=== PATIENT | female | born 1995 | race Caucasian/White ===

== ENCOUNTER 2017-05-10 19:26 | Emergency (ER) | payer OTHER ==
[2017-05-10 19:35] VITALS: BP 120/79; PULSE 97; TEMP 98.5; BMI 23.0
[2017-05-10] MEDS ORDERED: SODIUM CHLORIDE 0.9% 1000 ML INFUS.BAG IV ONE ×2 (20:10→22:10)
--- NOTE | 2017-05-10 20:28 | PDOC ---
History of Present Illness - General Chief Complaint: Lightheaded Stated Complaint: THYROID PAIN Time Seen by Provider: 05/10/17 19:50 History Source: Patient Exam Limitations: No Limitations - History of Present Illness Initial Comments: 05/10/17 20:23 The patient is a 21F with a PMH of hyperthyroidism and hypoglycemia who presents from her PCP's office for concerns of a thyroid storm. The patient states that her PCP changed her methimazole dosing 2 weeks ago. Since then she has felt drowsy, dizzy, nauseous, and felt like she was going to pass out. She states that her hands got cold, white, and purple. She's had difficulty swallowing and breathing. She has also felt more emotional recently. No sick contacts, no recent travel. She states that she feels like she has a cold. All: none Surg: none Soc: 1 cig/day, no drinking or drugs LMP: 7 days ago Past History - Past Medical History Allergies/Adverse Reactions: Allergies Allergy/AdvReac Type Severity Reaction Status Date / Time No Known Allergies Allergy Verified 05/10/17 19:33 Home Medications: Ambulatory Orders Methimazole [Tapazole -] 5 mg PO BID 05/10/17 - Psycho/Social/Smoking Cessation Hx Suicidal Ideation: No Smoking History: Never smoked Have you smoked in the past 12 months: No Information on smoking cessation initiated: No Hx Alcohol Use: No Drug/Substance Use Hx: No Review of Systems - Review of Systems Able to Perform ROS?: Yes Is the patient limited Sinhala proficient: No Constitutional: Yes: Chills, Fever HEENTM: Yes: Throat Pain, Throat Swelling. No: Ear Pain, Ear Discharge, Mouth Pain Respiratory: Yes: Shortness of Breath. No: Cough Cardiac (ROS): Yes: Chest Pain ABD/GI: Yes: Nausea, Other (abd pain - epigastric). No: Vomiting : No: Burning, Dysuria Neurological: Yes: Headache Psychiatric: Yes: Mood Swings Endocrine: Yes: Increased Thirst. No: Intolerance to Cold, Intolerance to Heat , Increased Urine *Physical Exam - Vital Signs Last Vital Signs Temp Pulse Resp BP Pulse Ox 98.5 F 97 H 18 120/79 100 05/10/17 19:28 05/10/17 19:28 05/10/17 19:28 05/10/17 19:28 05/10/17 19:28 - Physical Exam General Appearance: Yes: Nourished, Appropriately Dressed, Mild Distress. No: Apparent Distress HEENT: positive: Normal Voice, Nasal Congestion, Hearing Grossly Normal. negative: Muffled/Hoarse voice, Pharyngeal Erythema, Tonsillar Exudate, Tonsillar Erythema, Rhinorrhea Respiratory/Chest: positive: Lungs Clear, Normal Breath Sounds. negative: Chest Tender, Respiratory Distress, Accessory Muscle Use, Labored Respiration Cardiovascular: positive: Regular Rhythm, Regular Rate. negative: Tachycardia, Diastolic Murmur, Systolic Murmur Gastrointestinal/Abdominal: positive: Tender (epigastric), Flat, Soft. negative : Protuberent, Distended, Guarding, Rebound Musculoskeletal: negative: CVA Tenderness, CVA Tenderness (R), CVA Tenderness (L ) Extremity: positive: Normal Inspection, Normal Range of Motion. negative: Swelling, Calf Tenderness Integumentary: positive: Dry, Warm. negative: Cold, Clammy Neurologic: positive: Fully Oriented, Alert, Normal Mood/Affect, Motor Strength 5/5 Heart Score/ECG Review - ECG Impressions Normal ECG: Yes Comment:: 05/10/17 22:06 NSR ED Treatment Course - LABORATORY CBC & Chemistry Diagram: 05/10/17 20:16 05/10/17 20:16 - RADIOLOGY Radiology Studies Ordered: Category Date Time Status CHEST PA & LAT [RAD] Stat Radiology 05/10/17 20:06 Ordered Medical Decision Making - Medical Decision Making 05/10/17 20:31 The patient is a 21F with a PMH of hyperthyroidism and hypoglycemia who presents with cold-like symptoms. I will order labs to r/o an infectious process and electrolyte imbalance. Will reassess when labs return. 05/10/17 21:40 Patient complained of difficulty breathing. I placed her on a nebulized saline NRB. On reassessment she states she is feeling better. 05/10/17 22:20 The patient states that she's feeling better and she's ready for d/c. *DC/Admit/Observation/Transfer Diagnosis at time of Disposition: Pharyngitis Qualifiers: Pharyngitis/tonsillitis etiology: unspecified etiology Qualified Code(s): J02.9 - Acute pharyngitis, unspecified - Discharge Dispostion Disposition: HOME Condition at time of disposition: Improved Admit: No - Patient Instructions Printed Discharge Instructions: Common Cold, DI for Common Cold Additional Instructions: Please return to the ER if your symptoms persist, worsen, or if new symptoms arise. - Attestations Physician Attestion: 05/10/17 22:22 I, Dr. Raj Morgan, attest that this document has been prepared under my direction and personally reviewed by me in its entirety. I further attest, that it accurately reflects all work, treatment, procedures and medical decision -making performed by me.
[2017-05-10 20:30] LABS: BASOPHIL 0.4 % (0-2.0); EOSINOPHIL 1.1 % (0-4.5); MCH 33.4 pg (25.7-33.7); MCHC 35.1 g/dl (32.0-36.0); MEAN PLT VOLUME 7.7 fl (7.5-11.1); NEUTROPHILS 75.5 % (42.8-82.8); PLATELET COUNT 198 K/MM3 (134-434); RDW 12.5 % (11.6-15.6); WHITE BLOOD COUNT 8.7 K/mm3 (4.0-10.0)
[2017-05-10 20:45] LABS: URINE APPEARANCE CLEAR; URINE BILIRUBIN NEGATIVE (NEGATIVE); URINE BLOOD NEGATIVE (NEGATIVE); URINE COLOR LTYELLOW; URINE GLUCOSE (UA) NEGATIVE (NEGATIVE); URINE KETONE NEGATIVE (NEGATIVE); URINE LEUK ESTERASE NEGATIVE (NEGATIVE); URINE NITRITE NEGATIVE (NEGATIVE); URINE PROTEIN NEGATIVE (NEGATIVE); URINE UROBILINOGEN NEGATIVE mg/dL (0.2-1.0)
[2017-05-10 20:52] LABS: ALBUMIN 4.1 g/dl (3.4-5.0); ALK PHOS 52 U/L (45-117); ANION GAP 7 (8-16); BILIRUBIN,TOTAL 0.4 mg/dL (0.2-1.0); CALCIUM 9.1 mg/dL (8.5-10.1); CO2 27 mmol/L (21-32); CREATININE 0.9 mg/dL (0.55-1.02); GLUCOSE,RANDOM 89 mg/dL (74-106); SGOT/AST 9 U/L (15-37); SGPT/ALT 22 U/L (12-78); TOT PROT 7.8 g/dl (6.4-8.2)
[2017-05-10 21:00] LABS: FREE T4 0.92 ng/dl (0.76-1.46); THYROID STIMULATING HORMONE 1.31 uIU/ml (0.358-3.74)
--- NOTE | 2017-05-10 21:12 | PDOC ---
Attending Attestation - Resident Resident Name: Raj Morgan - ED Attending Attestation I have performed the following: I have examined & evaluated the patient, The case was reviewed & discussed with the resident, I agree w/resident's findings & plan, Exceptions are as noted - Physicial Exam PE: 05/10/17 21:11 *Physical Exam General Appearance: Yes: Appropriately Dressed. No: Apparent Distress, Intoxicated HEENT: positive: EOMI, SARAN, Normal ENT Inspection, Normal Voice, TMs Normal, Pharynx Normal. negative: Pale Conjunctivae, Photophobia, Scleral Icterus (R), Scleral Icterus (L) Neck: positive: Trachea midline, Normal Thyroid, Supple. negative: Tender, Rigid, Carotid bruit, Stridor, Lymphadenopathy (R), Lymphadenopathy (L), Thyromegaly Respiratory/Chest: positive: Lungs Clear, Normal Breath Sounds. negative: Chest Tender, Respiratory Distress, Accessory Muscle Use, Labored Respiration, RES, Crackles, Rales, Rhonchi, Stridor, Wheezing, Dullness Cardiovascular: positive: Regular Rhythm, Regular Rate, S1, S2. negative: Edema , JVD, Murmur, Bradycardia, Tachycardia Vascular Pulses: Dorsalis-Pedis (R): 2+, Doralis-Pedis (L): 2+ Gastrointestinal/Abdominal: positive: Normal Bowel Sounds, Flat, Soft. negative : Tender, Organomegaly, Pulsatile Mass, Increased Bowel Sounds, Decreased BS, Distended, Guarding, Rebound, Hernia, Hepatomegaly, Spleenomegaly Lymphatic: negative: Adenopathy, Tenderness Musculoskeletal: positive: Normal Inspection. negative: CVA Tenderness, Decreased Range of Motion Extremity: positive: Normal Capillary Refill, Normal Inspection, Normal Range of Motion, Pelvis Stable. negative: Tender, Pedal Edema, Swelling, Erythema Integumentary: positive: Normal Color, Dry, Warm. 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 negative: EOM Palsy, Facial Droop, Sensory Deficit
[2017-05-10] MEDS ORDERED: IBUPROFEN 600 MG TABLET (FP) PO ONE ×2 (22:09→22:17)
--- NOTE | 2017-05-11 10:22 | EKG ---
Test Reason : Blood Pressure : / mmHG Vent. Rate : 074 BPM Atrial Rate : 074 BPM P-R Int : 154 ms QRS Dur : 080 ms QT Int : 372 ms P-R-T Axes : 067 080 070 degrees QTc Int : 412 ms NORMAL SINUS RHYTHM NONSPECIFIC T WAVE ABNORMALITY NO PREVIOUS ECGS AVAILABLE Confirmed by MARILYN OLVERA MD ([id number]) on 05/11/2017 10:22:01 AM Referred By: Confirmed By:MARILYN OLVERA MD
== END 2017-05-10 22:40 | disposition home or self-care (01) ==
LOC: JER 19:26
PROC: 3E0337Z Introduction of Electrolytic and Water Balance Substance into Peripheral Vein, Percutaneous Approach (ICD-10-PCS; principal; 2017-05-10)
DX: J02.9 Acute pharyngitis, unspecified (principal); E05.90 Thyrotoxicosis, unspecified without thyrotoxic crisis or storm
CPT/HCPCS: 36415; 71020-TC; 80053; 81003; 84439; 84443; 84481; 84703; 85025; 93005; 93010; 99285-25

== ENCOUNTER 2017-07-29 20:41 | Emergency (ER) | payer OTHER ==
[2017-07-29 20:46] VITALS: BP 150/82; BMI 22.6
[2017-07-29] MEDS ORDERED: ONDANSETRON 4 MG/2 ML VIAL IVPUSH STA (23:22)
[2017-07-29] MEDS ORDERED: SODIUM CHLORIDE 1,000 ML IV STA (23:22)
[2017-07-29] MEDS ORDERED: ACETAMINOPHEN 500 MG TABLET (FP) PO ONE (23:34)
--- NOTE | 2017-07-30 00:11 | PDOC ---
History of Present Illness - General History Source: Patient Exam Limitations: No Limitations - History of Present Illness Initial Comments: 07/30/17 00:19 Patient is a 22 year old female who presents to the ED with complaints of diarrhea that began 3 days ago. Patient reports diarrhea beginning 3 days ago and has become progressively worse every day. She reports experiencing fever secondary to diarrhea for 3 days. She states experiencing 4 bowel movements per day for the last 3 days. Patient states bowel movements have been watery with no blood or odor changes. Patient reports experiencing body aches, fever and chills secondary to diarrhea. She reports taking excedrin yesterday with no relief. Patient states experiencing abdominal pain in the superpubic region, and he last menstrual period being last sunday. She states cramping and pain with period is baseline. Denies contact with sick individuals, out of state travel. Denies chest pain, SOB. Denies nausea, vomiting. Denies nasal congestion, coughing, and sneezing. Denies any other symptoms. PMH: Hyperthyroidism Allergies: None Social history: No smoking. No alcohol. No illicit drugs Surgical history: None PCP: Not on staff <Endy Moe - Last Filed: 07/30/17 00:19> <Consuelo Carvajal - Last Filed: 07/30/17 01:16> <Nikki Munoz - Last Filed: 07/30/17 06:09> - General Chief Complaint: Diarrhea Stated Complaint: FEVER Time Seen by Provider: 07/29/17 22:55 Past History <Endy Moe - Last Filed: 07/30/17 00:19> - Past Medical History Cardiac Disorders: Yes (murmur) COPD: No Diabetes: Yes (hypo) Thyroid Disease: Yes (hypo) - Suicide/Smoking/Psychosocial Hx Smoking History: Never smoked Have you smoked in the past 12 months: No Hx Alcohol Use: No Drug/Substance Use Hx: No <Consuelo Carvajal - Last Filed: 07/30/17 01:16> <Nikki Munoz - Last Filed: 07/30/17 06:09> - Past Medical History Allergies/Adverse Reactions: Allergies Allergy/AdvReac Type Severity Reaction Status Date / Time No Known Allergies Allergy Verified 07/29/17 20:46 Home Medications: Ambulatory Orders Methimazole [Tapazole -] 5 mg PO BID 08/17/17 Review of Systems - Review of Systems Able to Perform ROS?: Yes Comments:: 07/30/17 00:19 CONSTITUTIONAL: +Chills, +fever, +Loss of appetite. Absent:, diaphoresis, generalized weakness, malaise, HEENT: Absent: rhinorrhea, nasal congestion, throat pain, throat swelling, difficulty swallowing, mouth swelling, ear pain, eye pain, visual Changes CARDIOVASCULAR: Absent: chest pain, syncope, palpitations, irregular heart rate, lightheadedness , peripheral edema RESPIRATORY: Absent: cough, shortness of breath, dyspnea with exertion, orthopnea, wheezing, stridor, hemoptysis GASTROINTESTINAL: +Diarrhea. Absent: abdominal pain, abdominal distension, nausea, vomiting, constipation, melena, hematochezia GENITOURINARY: Absent: dysuria, frequency, urgency, hesitancy, hematuria, flank pain, genital pain MUSCULOSKELETAL: +Body aches. Absent: myalgia, arthralgia, joint swelling SKIN: Absent: rash, itching, pallor HEMATOLOGIC/IMMUNOLOGIC: Absent: easy bleeding, easy bruising, lymphadenopathy, frequent infections ENDOCRINE: Absent: unexplained weight gain, unexplained weight loss, heat intolerance, cold intolerance NEUROLOGIC: Absent: headache, focal weakness or paresthesias, dizziness, unsteady gait, seizure, mental status changes, bladder or bowel incontinence PSYCHIATRIC: Absent: anxiety, depression, suicidal or homicidal ideation, hallucinations. All Other Systems: Reviewed and Negative <Endy Moe - Last Filed: 07/30/17 00:19> *Physical Exam - Vital Signs Last Vital Signs Temp Pulse Resp BP Pulse Ox 102.1 F H 120 H 20 150/82 100 07/29/17 20:43 07/29/17 20:43 07/29/17 20:43 07/29/17 20:43 07/29/17 20:43 - Physical Exam Comments: 07/30/17 00:20 GENERAL: Well developed, well nourished. Awake and alert. No acute distress. HEENT: Normocephalic, atraumatic. PERRLA, EOMI. No conjunctival pallor. Sclera are non- icteric. Moist mucous membranes. Oropharynx is clear. NECK: Supple. Full ROM. No JVD. Carotid pulses 2+ and symmetric, without bruits. No thyromegaly. No lymphadenopathy. CARDIOVASCULAR: +Tachycardic Regular rate and rhythm. No murmurs, rubs, or gallops. Distal pulses are 2+ and symmetric. PULMONARY: +Diaphoretic. No evidence of respiratory distress. Lungs clear to auscultation bilaterally. No wheezing, rales or rhonchi. ABDOMINAL: +Right lower quadrant discomfort. Soft. Non-tender. Non-distended. No rebound or guarding. No organomegaly. Normoactive bowel sounds. MUSCULOSKELETAL Normal range of motion at all joints. No bony deformities or tenderness. No CVA tenderness. EXTREMITIES: No cyanosis. No clubbing. No edema. No calf tenderness. SKIN: Very Warm and dry. Normal capillary refill. No rashes. No jaundice. NEUROLOGICAL: Alert, awake, appropriate. Cranial nerves 2-12 intact. No deficits to light touch and temperature in face, upper extremities and lower extremities. No motor deficits in the in face, upper extremities and lower extremities. Normoreflexic in the upper and lower extremities. Normal speech. Toes are down-going bilaterally. Gait is normal without ataxia. PSYCHIATRIC: Cooperative. Good eye contact. Appropriate mood and affect <Endy Moe - Last Filed: 07/30/17 00:19> - Vital Signs Last Vital Signs Temp Pulse Resp BP Pulse Ox 102.1 F H 120 H 20 150/82 100 07/29/17 20:43 07/29/17 20:43 07/29/17 20:43 07/29/17 20:43 07/29/17 20:43 <Consuelo Carvajal - Last Filed: 07/30/17 01:16> - Vital Signs Last Vital Signs Temp Pulse Resp BP Pulse Ox 102.1 F H 120 H 20 150/82 100 07/29/17 20:43 07/29/17 20:43 07/29/17 20:43 07/29/17 20:43 07/29/17 20:43 <Nikki Munoz - Last Filed: 07/30/17 06:09> ED Treatment Course - LABORATORY CBC & Chemistry Diagram: 07/30/17 00:30 07/30/17 00:30 - ADDITIONAL ORDERS Additional order review: Laboratory Results 07/30/17 07/30/17 07/30/17 00:30 00:01 00:01 Sodium 136 Potassium 3.7 Chloride 103 Carbon Dioxide 22 Anion Gap 11 BUN 7 D Creatinine 0.8 Creat Clearance w eGFR > 60 Random Glucose 92 Calcium 7.9 L Total Bilirubin 0.5 D AST 16 D ALT 25 Alkaline Phosphatase 59 Total Protein 7.8 Albumin 3.9 Lipase 192 Urine Color Ltyellow Urine Appearance Clear Urine pH 6.0 Ur Specific [place] 1.014 Urine Protein Negative Urine Glucose (UA) Negative Urine Ketones Negative Urine Blood 2+ H Urine Nitrite Negative Urine Bilirubin Negative Urine Urobilinogen Negative Urine RBC 1 Urine WBC 1 Ur Epithelial Cells Rare Urine Mucus Rare Urine HCG, Qual Negative 07/30/17 03:50 Influenza Types A,B Antigen (REJI) - Preliminary Nasopharyngeal Swab - Preliminary 07/30/17 00:30 RBC 4.16 MCV 95.0 MCHC 33.9 RDW 12.3 MPV 8.1 Neutrophils % 75.8 Lymphocytes % 14.7 Monocytes % 9.0 Eosinophils % 0.1 D Basophils % 0.4 - Medications Given in the ED: ED Medications Discontinued Medications Generic Name Dose Route Start Last Admin Trade Name Ole PRN Reason Stop Dose Admin Acetaminophen 975 mg 07/29/17 23:34 07/30/17 00:48 Tylenol - PO 07/29/17 23:35 975 mg ONCE ONE Administration Sodium Chloride 1,000 mls @ 1,000 mls/hr 07/29/17 23:22 07/30/17 00:48 Normal Saline - IV 07/30/17 00:21 1,000 mls/hr ASDIR STA Administration Ondansetron HCl 4 mg 07/29/17 23:22 07/30/17 00:48 Zofran Injection IVPUSH 07/29/17 23:23 4 mg ONCE STA Administration <Nikki Munoz - Last Filed: 07/30/17 06:09> Medical Decision Making - Medical Decision Making 07/30/17 04:22 Patient Name: JESSEE GRIMM THIS IS A PRELIMINARY REPORT FROM [facility] DATE OF SERVICE: 2017-07-30 03:37:57 IMAGES: 475 EXAM: CT ABDOMEN AND PELVIS WITH CONTRAST No bowel obstruction, colitis, or free air. Normal appendix. Unremarkable pancreas, kidneys and gallbladder. Minimal splenomegaly. Small physiologic free fluid cul-de-sac. THIS DOCUMENT HAS BEEN ELECTRONICALLY SIGNED CONFIDENTIALITY NOTICE: This information is intended only for the use of the 07/30/17 06:08 Received pt on signout; Exam and labs normal. CT pending to r/o appendicitis. Appy is normal; vitals normal. Pt will be discharged home. Work note given Follow up with PMD as needed. <Nikki Munoz - Last Filed: 07/30/17 06:09> *DC/Admit/Observation/Transfer - Attestations Scribe Attestion: 07/30/17 00:20 Documentation prepared by Endy Moe, acting as hospital medical biller for Consuelo Carvajal MD/DO. <Endy Moe - Last Filed: 07/30/17 00:19> <Consuelo Carvajal - Last Filed: 07/30/17 01:16> - Discharge Dispostion Admit: No <Nikki Munoz - Last Filed: 07/30/17 06:09> Diagnosis at time of Disposition: Viral gastroenteritis - Discharge Dispostion Disposition: HOME Condition at time of disposition: Stable - Referrals Referrals: STAFF,NOT ON [Primary Care Provider] - - Patient Instructions Printed Discharge Instructions: Viral Gastroenteritis - Post Discharge Activity Forms/Work/School Notes: Back to Work
[2017-07-30 00:18] LABS: URINE APPEARANCE CLEAR; URINE BILIRUBIN NEGATIVE (NEGATIVE); URINE BLOOD 2+ (NEGATIVE); URINE COLOR LTYELLOW; URINE GLUCOSE (UA) NEGATIVE (NEGATIVE); URINE KETONE NEGATIVE (NEGATIVE); URINE NITRITE NEGATIVE (NEGATIVE); URINE PROTEIN NEGATIVE (NEGATIVE); URINE UROBILINOGEN NEGATIVE mg/dL (0.2-1.0)
[2017-07-30 00:28] LABS: URINE MUCUS RARE; URINE RBC 1; URINE WBC 1
[2017-07-30] MEDS ORDERED: ONDANSETRON 4 MG/2 ML VIAL ONE (00:37)
[2017-07-30] MEDS ORDERED: ACETAMINOPHEN 325 MG TABLET (FP) ONE (00:37)
[2017-07-30 00:53] LABS: BASOPHIL 0.4 % (0-2.0); EOSINOPHIL 0.1 % (0-4.5); MCH 32.2 pg (25.7-33.7); MCHC 33.9 g/dl (32.0-36.0); MEAN PLT VOLUME 8.1 fl (7.5-11.1); NEUTROPHILS 75.8 % (42.8-82.8); PLATELET COUNT 172 K/MM3 (134-434); RDW 12.3 % (11.6-15.6); WHITE BLOOD COUNT 6.3 K/mm3 (4.0-10.0)
[2017-07-30 01:20] LABS: ALBUMIN 3.9 g/dl (3.4-5.0); ANION GAP 11 (8-16); BILIRUBIN,TOTAL 0.5 mg/dL (0.2-1.0); CALCIUM 7.9 mg/dL (8.5-10.1); CO2 22 mmol/L (21-32); CREATININE 0.8 mg/dL (0.55-1.02); GLUCOSE,RANDOM 92 mg/dL (74-106); SGOT/AST 16 U/L (15-37); SGPT/ALT 25 U/L (12-78); TOT PROT 7.8 g/dl (6.4-8.2)
[2017-07-30 01:21] LABS: ALK PHOS 59 U/L (45-117)
[2017-07-30 04:49] VITALS: PULSE 98; TEMP 98.6
[2017-07-30 11:29] LABS: URINE LEUK ESTERASE Negative (NEGATIVE)
== END 2017-07-30 04:50 | disposition home or self-care (01) ==
LOC: JER 20:41
PROC: 3E033GC Introduction of Other Therapeutic Substance into Peripheral Vein, Percutaneous Approach (ICD-10-PCS; principal; 2017-07-29)
DX: A08.4 Viral intestinal infection, unspecified (principal); B97.89 Other viral agents as the cause of diseases classified elsewhere
CPT/HCPCS: 36415; 74177-TC; 80053; 81003; 81015; 83690; 84703; 85025; 87804; 96365; 99281-25; 99282-25

== ENCOUNTER 2019-01-14 11:23 | Emergency (ER) | payer OTHER ==
[2019-01-14 11:30] VITALS: BP 122/79; PULSE 80; TEMP 98.4; BMI 24.0
--- NOTE | 2019-01-14 12:42 | PDOC ---
History of Present Illness - General Chief Complaint: Injury Stated Complaint: FALL / HEAD / BACK INJURY Time Seen by Provider: 01/14/19 11:55 Past History - Past Medical History Allergies/Adverse Reactions: Allergies Allergy/AdvReac Type Severity Reaction Status Date / Time No Known Allergies Allergy Verified 07/29/17 20:46 Home Medications: Ambulatory Orders Methimazole [Tapazole -] 5 mg PO BID 05/10/17 Cyclobenzaprine HCl [Flexeril -] 10 mg PO HS #10 tablet 01/14/19 Ibuprofen 600 mg PO Q6H #30 tablet 01/14/19 Oxycodone HCl/Acetaminophen [Percocet 5-325 mg Tablet] 1 tab PO Q6H #15 tablet MDD 4 01/14/19 Cardiac Disorders: Yes (murmur) COPD: No Diabetes: Yes (HYPOGLYCEMIA) Thyroid Disease: Yes (hypothyrodism) - Immunization History Immunization Up to Date: No - Suicide/Smoking/Psychosocial Hx Smoking History: Never smoked Have you smoked in the past 12 months: No Information on smoking cessation initiated: No Hx Alcohol Use: No Drug/Substance Use Hx: No *Physical Exam - Vital Signs Last Vital Signs Temp Pulse Resp BP Pulse Ox 98.4 F 80 18 122/79 100 01/14/19 11:26 01/14/19 11:26 01/14/19 11:26 01/14/19 11:26 01/14/19 11:26 *DC/Admit/Observation/Transfer Diagnosis at time of Disposition: Sacral fracture Qualifiers: Encounter type: initial encounter Zone of sacrum fracture: unspecified portion of sacrum Fracture type: closed Qualified Code(s): S32.10XA - Unspecified fracture of sacrum, initial encounter for closed fracture - Discharge Dispostion Disposition: HOME Condition at time of disposition: Stable Decision to Admit order: No - Referrals Referrals: Anuel Ivy MD [Primary Care Provider] - - Patient Instructions Printed Discharge Instructions: Sacral Stress Fracture Additional Instructions: Your x-ray shows a broken sacrum (tailbone) Take the Percocet every 6 hours as needed for pain. Do not drink alcohol or drive after taking this medication Take the Motrin and flexeril as directed. Buy a donut pillow to sit on to offset the pain on the sacrum Your head CT and neck CT were negative today Please follow up with orthopedics this week. A referral has been provided Return to the ED for worsening pain despite treatment, loss of bladder/bowel function, saddle anesthesia, or if you have any changes in your symptoms - Post Discharge Activity Forms/Work/School Notes: Back to Work
[2019-01-14] MEDS ORDERED: LIDOCAINE 5% TOPICAL PATCH TP ONE (13:19)
[2019-01-14] MEDS ORDERED: ACETAMINOPHEN 325 MG TABLET (FP) PO ONE (13:19)
[2019-01-14] MEDS ORDERED: CYCLOBENZAPRINE HCL 10 MG TABLET (FP) PO ONE (13:20)
[2019-01-14 13:51] LABS: URINE APPEARANCE CLOUDY; URINE BILIRUBIN NEGATIVE (NEGATIVE); URINE COLOR YELLOW; URINE GLUCOSE (UA) NEGATIVE (NEGATIVE); URINE KETONE NEGATIVE (NEGATIVE); URINE LEUK ESTERASE NEGATIVE (NEGATIVE); URINE NITRITE NEGATIVE (NEGATIVE); URINE PROTEIN NEGATIVE (NEGATIVE); URINE UROBILINOGEN 0.2 mg/dL (0.2-1.0)
[2019-01-14 13:53] LABS: HCG,QUALITATIVE URINE Negative
[2019-01-14] MEDS ORDERED: LIDOCAINE 5% TOPICAL PATCH ONE (16:45)
[2019-01-14] MEDS ORDERED: ACETAMINOPHEN 325 MG TABLET (FP) ONE (16:48)
[2019-01-14] MEDS ORDERED: CYCLOBENZAPRINE HCL 10 MG TABLET (FP) ONE (16:48)
[2019-01-14] MEDS ORDERED: LIDOCAINE PATCH REMOVAL MC SCH (22:00)
== END 2019-01-14 17:40 | disposition home or self-care (01) ==
LOC: JER 11:23
DX: S32.10XA Unspecified fracture of sacrum, initial encounter for closed fracture (principal); W10.8XXA Fall (on) (from) other stairs and steps, initial encounter; Y93.89 Activity, other specified; Y92.89 Other specified places as the place of occurrence of the external cause; Y99.8 Other external cause status; E03.9 Hypothyroidism, unspecified; R01.1 Cardiac murmur, unspecified; E16.1 Other hypoglycemia
CPT/HCPCS: 70450-TC; 72100-TC-FY; 72125-TC; 81003; 84703; 99281-25

== ENCOUNTER 2019-04-14 12:35 | Emergency (ER) | payer OTHER ==
--- NOTE | 2019-04-14 12:42 | PDOC ---
Rapid Medical Evaluation Medical Evaluation: Allergies Allergy/AdvReac Type Severity Reaction Status Date / Time No Known Allergies Allergy Verified 07/29/17 20:46 04/14/19 12:41 I have performed a brief in-person evaluation of this patient. The patient presents with a chief complaint of: epigastric pain x2 weeks- reports fasting BG- 170's Pertinent physical exam findings: Lungs CTAB. Systolic murmur. I have ordered the following: labs, urine, ekg, CXR The patient will proceed to the ED for further evaluation. Discharge Disposition - Diagnosis Epigastric pain - Referrals - Patient Instructions - Post Discharge Activity
[2019-04-14] MEDS ORDERED: LIDOCAINE VISCOUS 2% ORAL/TOP 20 ML UNIT-DOSE CUP PO ONE (12:43)
[2019-04-14] MEDS ORDERED: MAG HYDROX/AL HYDROX/SIMETH 30 ML UNIT-DOSE CUP PO ONE (12:43)
[2019-04-14 12:45] VITALS: BP 134/78; PULSE 82; TEMP 98.4; BMI 24.0
[2019-04-14] MEDS ORDERED: LIDOCAINE VISCOUS 2% ORAL/TOP 20 ML UNIT-DOSE CUP ONE (13:14)
[2019-04-14] MEDS ORDERED: MAG HYDROX/AL HYDROX/SIMETH 30 ML UNIT-DOSE CUP ONE (13:15)
[2019-04-14] MEDS ORDERED: SODIUM CHLORIDE 1,000 ML IV STA (13:19)
--- NOTE | 2019-04-14 13:39 | PDOC ---
History of Present Illness <Bren López - Last Filed: 04/14/19 13:51> - General History Source: Patient Exam Limitations: No Limitations - History of Present Illness Initial Comments: 04/14/19 13:22 23-year-old female presents to ED with midsternal burning for the past week associated decreased appetite secondary to worsening symptoms. Patient states took nothing for the above and denies any GI history, recent change in diet, nausea, vomiting or constipation. Patient also denies excessive usage of Motrin or Tylenol Timing/Duration: intermittent Severity: mild Associated Symptoms: reports: chest pain, loss of appetite <Kimberley Jarrett - Last Filed: 04/14/19 15:17> - General Chief Complaint: Pain, Acute Stated Complaint: HEART BURN Time Seen by Provider: 04/14/19 12:44 Past History <Bren López - Last Filed: 04/14/19 13:51> - Travel Traveled outside of the country in the last 30 days: No Close contact w/someone who was outside of country & ill: No - Past Medical History Asthma: Yes Cardiac Disorders: Yes (murmur) COPD: No Diabetes: Yes (HYPOGLYCEMIA) Thyroid Disease: Yes (hypothyrodism) - Immunization History Immunization Up to Date: Yes - Suicide/Smoking/Psychosocial Hx Smoking History: Never smoked Have you smoked in the past 12 months: No Hx Alcohol Use: No Drug/Substance Use Hx: No Patient Lives Alone: No Lives with/in: parents <Kimberley Jarrett - Last Filed: 04/14/19 15:17> - Past Medical History Allergies/Adverse Reactions: Allergies Allergy/AdvReac Type Severity Reaction Status Date / Time No Known Allergies Allergy Verified 04/14/19 12:42 Home Medications: Ambulatory Orders Methimazole [Tapazole -] 5 mg PO BID 05/10/17 Cyclobenzaprine HCl [Flexeril -] 10 mg PO HS #10 tablet 01/14/19 Ibuprofen 600 mg PO Q6H #30 tablet 01/14/19 Oxycodone HCl/Acetaminophen [Percocet 5-325 mg Tablet] 1 tab PO Q6H #15 tablet MDD 4 01/14/19 Review of Systems - Review of Systems Able to Perform ROS?: Yes Constitutional: Yes: Loss of Appetite HEENTM: No: Symptoms Reported Respiratory: No: Symptoms reported Cardiac (ROS): No: Symptoms Reported ABD/GI: Yes: Indigestion : No: Symptoms Reported Musculoskeletal: No: Symptoms Reported Integumentary: No: Symptoms Reported Neurological: No: Symptoms reported Hematologic/Lymphatic: No: Symptoms Reported <Kimberley Jarrett - Last Filed: 04/14/19 15:17> *Physical Exam - Vital Signs Last Vital Signs Temp Pulse Resp BP Pulse Ox 98.4 F 82 18 134/78 100 04/14/19 12:42 04/14/19 12:42 04/14/19 12:42 04/14/19 12:42 04/14/19 12:42 <Bren López - Last Filed: 04/14/19 13:51> - Vital Signs Last Vital Signs Temp Pulse Resp BP Pulse Ox 98.4 F 82 18 134/78 100 04/14/19 12:42 04/14/19 12:42 04/14/19 12:42 04/14/19 12:42 04/14/19 12:42 - Physical Exam General Appearance: Yes: Nourished, Appropriately Dressed HEENT: positive: EOMI, SARAN, Pharynx Normal. negative: Pale Conjunctivae Neck: positive: Normal Thyroid Respiratory/Chest: positive: Lungs Clear, Normal Breath Sounds. negative: Chest Tender, Respiratory Distress, Accessory Muscle Use Cardiovascular: positive: Regular Rhythm, Regular Rate. negative: Murmur Gastrointestinal/Abdominal: positive: Soft, Tenderness (mild epigastric) Musculoskeletal: negative: CVA Tenderness Extremity: negative: Pedal Edema Integumentary: positive: Normal Color, Warm, Moist Neurologic: positive: Motor Strength 5/5 (ambulatory) <Kimberley Jarrett - Last Filed: 04/14/19 15:17> ED Treatment Course - LABORATORY CBC & Chemistry Diagram: 04/14/19 13:47 04/14/19 13:47 <Kimberley Jarrett - Last Filed: 04/14/19 15:17> Medical Decision Making - Medical Decision Making The patient was seen and evaluated in conjunction with midlevel provider under my direct supervision, ancillary studies were reviewed. I agree with the plan as outlined [employer] [place]. HPI, workup/dispo as outlined. VS reviewed, wnl. EKG with NSR at [address] and T wave segments/intervals. anticipate discharge, pcp followup, return precautions 04/14/19 13:51 <Bren López - Last Filed: 04/14/19 13:51> - Medical Decision Making 04/14/19 13:27 Chief complaint: Epigastric burning the past week causing her decreased appetite secondary to worsening burning. No other complaints no meds taken Exam: Mild epigastric tenderness otherwise normal PE with vital signs stable Plan: Patient was seen in [facility] and was ordered labs, urine, meds and EKG 04/14/19 15:14 Laboratory Tests 04/14/19 04/14/19 04/14/19 13:25 13:25 13:47 WBC Hgb Hct Neutrophils % Sodium Potassium Chloride Carbon Dioxide Anion Gap BUN Creatinine Random Glucose Calcium Total Bilirubin AST ALT Alkaline Phosphatase Creatine Kinase 268 H Troponin I < 0.02 Total Protein Albumin Lipase Urine Ketones Trace H Ur Leukocyte Esterase Trace Urine WBC (Auto) 4 Urine HCG, Qual Negative 04/14/19 04/14/19 13:47 13:47 WBC 5.7 Hgb 13.5 Hct 39.1 Neutrophils % 63.9 Sodium 139 Potassium 4.0 Chloride 107 Carbon Dioxide 26 Anion Gap 7 L BUN 10.7 Creatinine 0.7 Random Glucose 89 Calcium 8.9 Total Bilirubin 0.5 AST 14 L ALT 23 Alkaline Phosphatase 64 Creatine Kinase Troponin I Total Protein 7.4 Albumin 4.1 Lipase 144 Urine Ketones Ur Leukocyte Esterase Urine WBC (Auto) Urine HCG, Qual Pt states states feeling better. <Kimberley Jarrett - Last Filed: 04/14/19 15:17> *DC/Admit/Observation/Transfer <Bren López - Last Filed: 04/14/19 13:51> <Kimberley Jarrett - Last Filed: 04/14/19 15:17> Diagnosis at time of Disposition: Epigastric pain - Discharge Dispostion Disposition: HOME Condition at time of disposition: Improved - Referrals Referrals: Stacy Holder NP [Primary Care Provider] - Zeeshan Beckham MD [Staff Physician] - - Patient Instructions Printed Discharge Instructions: Avoiding Foods That Cause Heartburn Additional Instructions: Read over information in regards to heartburn You may purchase [id number] Zantac or Pepcid for discomfort. Follow-up with GI if symptoms continue despite above recommendations. - Post Discharge Activity Forms/Work/School Notes: Back to Work
[2019-04-14 14:23] LABS: EPI CELLS 4.4 /HPF (0-5/HPF); HYALINE CASTS 7 /lpf (0-8); PH,URINE 5.5 (5.0-8.0); URINE APPEARANCE CLEAR; URINE BACTERIA 3693.3 /hpf (NEGATIVE); URINE BILIRUBIN NEGATIVE (NEGATIVE); URINE COLOR YELLOW; URINE GLUCOSE (UA) NEGATIVE (NEGATIVE); URINE KETONE TRACE (NEGATIVE); URINE LEUK ESTERASE TRACE (NEGATIVE); URINE NITRITE NEGATIVE (NEGATIVE); URINE PROTEIN NEGATIVE (NEGATIVE); URINE RBC 1 /hpf (0-4); URINE UROBILINOGEN 0.2 mg/dL (0.2-1.0); URINE WBC 4 /hpf (0-5)
[2019-04-14 14:32] LABS: BASO % 0.4 % (0-2.0); EOS % 1.9 % (0-4.5); HEMATOCRIT 39.1 % (32.4-45.2); HEMOGLOBIN 13.5 GM/dL (10.7-15.3); LYMPH % 26.5 % (8-40); MCH 33.2 pg (25.7-33.7); MCHC 34.5 g/dl (32.0-36.0); MEAN CELL VOLUME 96.2 fl (80-96); MEAN PLT VOLUME 8.5 fl (7.5-11.1); MONO % 7.3 % (3.8-10.2); NEUT % 63.9 % (42.8-82.8); PLATELET COUNT 182 K/MM3 (134-434); RBC 4.06 M/mm3 (3.60-5.2); RDW 12.7 % (11.6-15.6); WHITE BLOOD COUNT 5.7 K/mm3 (4.0-10.0)
[2019-04-14 14:56] LABS: ALBUMIN 4.1 g/dl (3.4-5.0); BILIRUBIN,TOTAL 0.5 mg/dL (0.2-1); BLOOD UREA NITROGEN 10.7 mg/dL (7-18); CALCIUM 8.9 mg/dL (8.5-10.1); CREATININE 0.7 mg/dL (0.55-1.3); TOT PROT 7.4 g/dl (6.4-8.2)
--- NOTE | 2019-04-14 17:24 | EKG ---
Test Reason : Blood Pressure : / mmHG Vent. Rate : 068 BPM Atrial Rate : 068 BPM P-R Int : 152 ms QRS Dur : 090 ms QT Int : 402 ms P-R-T Axes : 071 077 071 degrees QTc Int : 427 ms NORMAL SINUS RHYTHM NORMAL ECG WHEN COMPARED WITH ECG OF 10-MAY-2017 21:52, NO SIGNIFICANT CHANGE WAS FOUND Confirmed by MAGUI SCHAEFER MD ([id number]) on 04/14/2019 5:23:53 PM Referred By: Confirmed By:MAGUI SCHAEFER MD
== END 2019-04-14 15:30 | disposition home or self-care (01) ==
LOC: JER 12:35
PROC: 3E0337Z Introduction of Electrolytic and Water Balance Substance into Peripheral Vein, Percutaneous Approach (ICD-10-PCS; principal; 2019-04-14)
DX: R10.13 Epigastric pain (principal)
CPT/HCPCS: 36415; 80053; 81003; 82550; 82553; 83690; 84484; 84703; 85025; 87086; 87186; 93005; 93010; 96360; 99282-25; J7030

== ENCOUNTER 2019-06-30 05:45 | Emergency (ER) | payer OTHER ==
[2019-06-30 06:11] VITALS: BP 129/89; PULSE 66; TEMP 98.7; BMI 22.3
--- NOTE | 2019-06-30 07:31 | PDOC ---
History of Present Illness - General Chief Complaint: Pain Stated Complaint: ABDOMINAL AND PAIN Time Seen by Provider: 06/30/19 07:30 Past History - Past Medical History Allergies/Adverse Reactions: Allergies Allergy/AdvReac Type Severity Reaction Status Date / Time No Known Allergies Allergy Verified 06/30/19 06:11 Home Medications: Ambulatory Orders Ondansetron [Zofran Odt -] 4 mg SL TID PRN #10 od.tablet 06/30/19 Asthma: Yes Cardiac Disorders: Yes (murmur) COPD: No Diabetes: Yes (HYPOGLYCEMIA) Thyroid Disease: Yes (hypothyrodism) - Immunization History Immunization Up to Date: Yes - Psycho Social/Smoking Cessation Hx Smoking History: Never smoked Have you smoked in the past 12 months: No Hx Alcohol Use: No Drug/Substance Use Hx: No *Physical Exam - Vital Signs Last Vital Signs Temp Pulse Resp BP Pulse Ox 98.7 F 66 19 129/89 99 06/30/19 05:46 06/30/19 05:46 06/30/19 05:46 06/30/19 05:46 06/30/19 05:46 ED Treatment Course - LABORATORY CBC & Chemistry Diagram: 06/30/19 08:00 06/30/19 08:00 Medical Decision Making - Medical Decision Making 24yo F with PMH of asthma, hypothyroidism, heart murmur, and hypoglycemia presenting with abdominal pain and back pain. Patient states she woke up from sleep at 4am with sudden 10/10 "sharp" pain radiating from her back to her epigastrium. She has never had pain like this before. never followed with a GI doctor. Did not take anything for pain. Endorses fever of 101 yesterday for which she took tylenol. Normal bowel movement yesterday which was a dark brown formed stool without blood. Reports nausea, but no vomiting. LMP was . 06/30/19 07:31 CBC WBC 5.5 K/mm3 (4.0-10.0) 06/30/19 08:00 RBC 4.17 M/mm3 (3.60-5.2) 06/30/19 08:00 Hgb 13.5 GM/dL (10.7-15.3) 06/30/19 08:00 Hct 39.9 % (32.4-45.2) 06/30/19 08:00 MCV 95.8 fl (80-96) 06/30/19 08:00 MCH 32.3 pg (25.7-33.7) 06/30/19 08:00 MCHC 33.7 g/dl (32.0-36.0) 06/30/19 08:00 RDW 12.7 % (11.6-15.6) 06/30/19 08:00 Plt Count 208 K/MM3 (134-434) 06/30/19 08:00 MPV 8.3 fl (7.5-11.1) 06/30/19 08:00 Absolute Neuts (auto) 3.2 K/mm3 (1.5-8.0) 06/30/19 08:00 Neutrophils % 59.2 % (42.8-82.8) 06/30/19 08:00 Lymphocytes % 29.6 % (8-40) 06/30/19 08:00 Monocytes % 7.7 % (3.8-10.2) 06/30/19 08:00 Eosinophils % 2.9 % (0-4.5) 06/30/19 08:00 Basophils % 0.6 % (0-2.0) 06/30/19 08:00 Nucleated RBC % 0 % (0-0) 06/30/19 08:00 No leukocytosis CMP Sodium 141 mmol/L (136-145) 06/30/19 08:00 Potassium 3.8 mmol/L (3.5-5.1) 06/30/19 08:00 Chloride 108 mmol/L (98-107) H 06/30/19 08:00 Carbon Dioxide 26 mmol/L (21-32) 06/30/19 08:00 Anion Gap 7 MMOL/L (8-16) L 06/30/19 08:00 BUN 11.2 mg/dL (7-18) 06/30/19 08:00 Creatinine 0.8 mg/dL (0.55-1.3) 06/30/19 08:00 Est GFR (CKD-EPI)AfAm 117.93 06/30/19 08:00 Est GFR (CKD-EPI)NonAf 101.75 06/30/19 08:00 Random Glucose 87 mg/dL (74-106) 06/30/19 08:00 Calcium 8.4 mg/dL (8.5-10.1) L 06/30/19 08:00 Total Bilirubin 0.3 mg/dL (0.2-1) 06/30/19 08:00 AST 19 U/L (15-37) 06/30/19 08:00 ALT 28 U/L (13-61) 06/30/19 08:00 Alkaline Phosphatase 72 U/L (45-117) 06/30/19 08:00 Total Protein 7.3 g/dl (6.4-8.2) 06/30/19 08:00 Albumin 4.0 g/dl (3.4-5.0) 06/30/19 08:00 Lipase 604 U/L (73-393) H 06/30/19 08:00 Electrolytes unremarkable Cr normal Lipase elevated; this may be early pancreatitis We will give GI followup Zofran to pharmacy Tylenol/motrin to pharmacy 06/30/19 09:05 06/30/19 09:38 Discharge - Discharge Information Problems reviewed: Yes Clinical Impression/Diagnosis: Elevated lipase Abdominal pain Qualifiers: Abdominal location: epigastric Qualified Code(s): R10.13 - Epigastric pain Condition: Stable - Additional Discharge Information Prescriptions: Ondansetron [Zofran Odt -] 4 mg SL TID PRN #10 od.tablet PRN Reason: nausea - Follow up/Referral Referrals: Bam Kingsley MD [Staff Physician] - - Patient Discharge Instructions Patient Printed Discharge Instructions: DI for Pancreatitis Additional Instructions: You came into the ED for abdominal pain. We gave you medicine and fluids which helped you feel better. Labs showed your lipase (a measure of pancreatic enzymes) was elevated. This may be a sign of very early pancreatitis. Make sure you drink plenty of water. Avoid alcohol and smoking. Start with clear liquids such as broth. You can then transition to eating small, low-fat meals We have referred you to a GI doctor. Call today and make an appointment. Your workup is not complete until you do so. You can take over the counter motrin or tylenol for pain. Follow the instructions on the medication bottle. Prescription sent to your pharmacy for antinausea medicine. Immediate medical attention is required if you develop: worsening pain, high fevers, persistent nausea, vomiting, or any new or concerning symptoms. If you think you are having an emergency, call for emergency medical services or present to the emergency department right away. - Post Discharge Activity Work/Back to School Note: Back to Work
[2019-06-30] MEDS ORDERED: SODIUM CHLORIDE 1,000 ML IV STA (07:48)
[2019-06-30] MEDS ORDERED: ONDANSETRON 4 MG/2 ML VIAL IVPUSH ONE (07:48)
[2019-06-30] MEDS ORDERED: ACETAMINOPHEN 1000 MG/100 ML VIAL (NON FORMULARY) IVPB ONE (07:48)
[2019-06-30] MEDS ORDERED: FAMOTIDINE 20 MG/50 ML IVPB 20 MG/50 ML MG IVPB ONE ×2 (07:48→08:06)
--- NOTE | 2019-06-30 08:02 | PDOC ---
Attending Attestation - Resident Resident Name: Josefa Nayak - ED Attending Attestation I have performed the following: I have examined & evaluated the patient, The case was reviewed & discussed with the resident, I agree w/resident's findings & plan, Exceptions are as noted - HPI HPI: 06/30/19 08:01 24y F hx of hypothyroidism presents with back pain. The pt states she was in her usual state of health yesterday until approximately 4 AM when she started having a back pain in the mid thoracic region that radiated anteriorly to the lower abdomen. Patient denies any nausea, vomiting, fever, chills, diarrhea, constipation, dysuria, hematuria, foul-smelling urine, chest pain, shortness of breath. Patient denies any prior history of similar pain. PMD Dr Holder - Physicial Exam PE: 06/30/19 08:14 GENERAL: The patient is awake, alert, and fully oriented, Nontoxic - in no acute distress. HEAD: Normocephalic, atraumatic. EYES: extraocular movements intact, sclera anicteric, conjunctiva clear. ENT: Normal voice, Moist mucous membranes. NECK: Normal range of motion, supple LUNGS: Breath sounds equal, clear to auscultation bilaterally. No wheezes, no rhonchi, no rales. HEART: Regular rate and rhythm, normal S1 and S2 without murmur, rub or gallop. ABDOMEN: Soft, mild tenderness on suprapubic region and b/l lower quadrants, No guarding, no rebound. No CVA tenderness EXTREMITIES: Normal range of motion, no edema. NEUROLOGICAL: No facial assymetry, Normal speech, PSYCH: Normal mood, normal affect. SKIN: Warm, Dry, normal turgor, - Medical Decision Making 06/30/19 08:15 Differential for the patient's symptoms includes a possible pancreatitis, appendicitis, gastritis, diverticulitis, UTI, ovarian cysts. msk pain will obtain ua, labs will reasses
[2019-06-30] MEDS ORDERED: ACETAMINOPHEN INJECTION 100 ML IVPB ONE (08:05)
[2019-06-30] MEDS ORDERED: ONDANSETRON 4 MG/2 ML VIAL ONE (08:06)
[2019-06-30 08:14] LABS: BASO % 0.6 % (0-2.0); EOS % 2.9 % (0-4.5); HEMATOCRIT 39.9 % (32.4-45.2); HEMOGLOBIN 13.5 GM/dL (10.7-15.3); LYMPH % 29.6 % (8-40); MCH 32.3 pg (25.7-33.7); MCHC 33.7 g/dl (32.0-36.0); MEAN CELL VOLUME 95.8 fl (80-96); MEAN PLT VOLUME 8.3 fl (7.5-11.1); MONO % 7.7 % (3.8-10.2); NEUT % 59.2 % (42.8-82.8); PLATELET COUNT 208 K/MM3 (134-434); RBC 4.17 M/mm3 (3.60-5.2); RDW 12.7 % (11.6-15.6); WHITE BLOOD COUNT 5.5 K/mm3 (4.0-10.0)
[2019-06-30 08:25] LABS: URINE APPEARANCE Clear; URINE BILIRUBIN Negative (NEGATIVE); URINE COLOR Yellow; URINE GLUCOSE (UA) Negative (NEGATIVE); URINE KETONE Negative (NEGATIVE); URINE LEUK ESTERASE Trace (NEGATIVE); URINE NITRITE Negative (NEGATIVE); URINE PROTEIN Negative (NEGATIVE); URINE UROBILINOGEN 0.2 mg/dL (0.2-1.0)
[2019-06-30 08:43] LABS: BILIRUBIN,TOTAL 0.3 mg/dL (0.2-1); BLOOD UREA NITROGEN 11.2 mg/dL (7-18); CALCIUM 8.4 mg/dL (8.5-10.1); CREATININE 0.8 mg/dL (0.55-1.3); POTASSIUM 3.8 mmol/L (3.5-5.1); TOT PROT 7.3 g/dl (6.4-8.2)
[2019-06-30 09:51] LABS: URINE BACTERIA 945.5 /hpf (NEGATIVE); URINE RBC 1.7 /hpf (0-4)
[2019-06-30 09:52] LABS: HYALINE CASTS NONE SEEN /lpf (0-8); URINE CRYSTALS CALCIUM OXALATE=2+ /hpf
== END 2019-06-30 09:55 | disposition home or self-care (01) ==
LOC: JER 05:45
PROC: 3E033GC Introduction of Other Therapeutic Substance into Peripheral Vein, Percutaneous Approach (ICD-10-PCS; principal; 2019-06-30)
DX: R10.13 Epigastric pain (principal); R74.8 Abnormal levels of other serum enzymes; E03.9 Hypothyroidism, unspecified; E16.2 Hypoglycemia, unspecified; J45.909 Unspecified asthma, uncomplicated; R01.1 Cardiac murmur, unspecified
CPT/HCPCS: 36415; 80053; 81003; 83690; 84703; 85025; 96365; 99282-25; J0131; J7030

== ENCOUNTER 2019-07-04 14:59 | Emergency (ER) | payer OTHER ==
--- NOTE | 2019-07-04 15:19 | PDOC ---
Rapid Medical Evaluation Time Seen by Provider: 07/04/19 15:17 Medical Evaluation: Allergies Allergy/AdvReac Type Severity Reaction Status Date / Time No Known Allergies Allergy Verified 07/04/19 15:16 07/04/19 15:17 Pt c/o: right abd pain with nausea and constipation, recent dx of early pancreatitis Pt on brief exam: vss, bs + x 4, ruq tenderness Pt ordered for: labs, urine, and zofran, ivf Pt to proceed to the ED Discharge Disposition - Diagnosis Abdominal pain - Referrals - Patient Instructions - Post Discharge Activity
[2019-07-04 15:20] VITALS: BMI 22.3
[2019-07-04] MEDS ORDERED: ONDANSETRON 4 MG/2 ML VIAL IVPUSH ONE (15:21)
[2019-07-04] MEDS ORDERED: SODIUM CHLORIDE 1,000 ML IV STA (15:21)
[2019-07-04 15:49] LABS: BASO % 0.4 % (0-2.0); EOS % 1.3 % (0-4.5); HEMATOCRIT 44.6 % (32.4-45.2); HEMOGLOBIN 14.9 GM/dL (10.7-15.3); LYMPH % 25.7 % (8-40); MCH 31.8 pg (25.7-33.7); MCHC 33.3 g/dl (32.0-36.0); MEAN CELL VOLUME 95.5 fl (80-96); MEAN PLT VOLUME 8.3 fl (7.5-11.1); MONO % 6.9 % (3.8-10.2); NEUT % 65.7 % (42.8-82.8); PLATELET COUNT 212 K/MM3 (134-434); RBC 4.67 M/mm3 (3.60-5.2); RDW 12.5 % (11.6-15.6); WHITE BLOOD COUNT 5.2 K/mm3 (4.0-10.0)
[2019-07-04 15:53] LABS: EPI CELLS >36 /HPF (0-5/HPF); HYALINE CASTS 20 /lpf (0-8); URINE APPEARANCE CLOUDY; URINE BACTERIA 1222.9 /hpf (NEGATIVE); URINE BILIRUBIN NEGATIVE (NEGATIVE); URINE COLOR YELLOW; URINE GLUCOSE (UA) NEGATIVE (NEGATIVE); URINE KETONE TRACE (NEGATIVE); URINE LEUK ESTERASE TRACE (NEGATIVE); URINE NITRITE NEGATIVE (NEGATIVE); URINE PROTEIN NEGATIVE (NEGATIVE); URINE RBC 3 /hpf (0-4); URINE UROBILINOGEN 0.2 mg/dL (0.2-1.0); URINE WBC 14 /hpf (0-5)
[2019-07-04 16:20] LABS: ALBUMIN 4.3 g/dl (3.4-5.0); BILIRUBIN,TOTAL 0.7 mg/dL (0.2-1); BLOOD UREA NITROGEN 13.5 mg/dL (7-18); CALCIUM 9.5 mg/dL (8.5-10.1); CREATININE 0.8 mg/dL (0.55-1.3); MAGNESIUM 2.1 mg/dL (1.8-2.4); POTASSIUM 4.8 mmol/L (3.5-5.1); TOT PROT 8.2 g/dl (6.4-8.2)
[2019-07-04] MEDS ORDERED: ONDANSETRON 4 MG/2 ML VIAL ONE (16:58)
--- NOTE | 2019-07-04 18:36 | PDOC ---
History of Present Illness - General Chief Complaint: Pain Stated Complaint: RIGHT SIDE PAIN Time Seen by Provider: 07/04/19 15:17 History Source: Patient, Old Records Exam Limitations: No Limitations - History of Present Illness Travel History: No Initial Comments: 07/04/19 18:31 HISTORY OF PRESENT ILLNESS: Is a 24-year-old woman with past medical history of asthma, hypothyroidism (status post thyroidectomy), PCOS, hypoglycemia who presents to the emergency department for evaluation of diffuse abdominal pain which is worsened over 4 days. Patient was seen and evaluated in this emergency department 4 days ago when she was awoken with sudden onset sharp mid back pain bandlike and radiating to the epigastric area. Patient was found to have elevated lipase to 600s. No imaging was performed and was discharged with diet instructions and PMD follow-up. Patient reports the pain is been constant since that time and rates it 9/10. Patient reports the pain continues to be sharp it is unable to identify any aggravating or alleviating factors. Patient also concerned that she has not had a bowel movement in the past 4 days does report decrease in appetite and oral intake. Patient's usual bowel pattern is 2 times daily. She denies any nausea or vomiting. No recent travel or sick contacts. PAST MEDICAL HISTORY: See HPI SURGICAL HISTORY: See HPI ALLERGIES: No known drug allergies REVIEW OF SYSTEMS General/Constitutional: Denies fever or chills. Denies weakness, weight change. HEENT: Denies change in vision. Denies ear pain or discharge. Denies sore throat. Cardiovascular: Denies chest pain or shortness of breath. Respiratory: Denies cough, wheezing, or hemoptysis. Gastrointestinal: See HPI Genitourinary: Denies dysuria, frequency, or change in urination. Musculoskeletal: Denies joint or muscle swelling or pain. Denies neck or back pain. Skin and breasts: Denies rash or easy bruising. Neurologic: Denies headache, vertigo, loss of consciousness, or loss of sensation. Psychiatric: Denies depression or anxiety. Endocrine: Denies increased thirst. Denies abnormal weight change. Hematologic/Lymphatic: Denies anemia, easy bleeding, or history of blood clots. Allergic/Immunologic: Denies hives or skin allergy. Denies latex allergy. PHYSICAL EXAM General Appearance: Well-appearing, appropriately dressed. No apparent distress , no intoxication. HEENT: EOMI, PERRLA, normal ENT inspection, normal voice, TMs normal, pharynx normal. No conjunctival pallor. No photophobia, scleral icterus. Neck: Supple. Trachea midline. No tenderness, rigidity, carotid bruit, stridor , lymphadenopathy, or thyromegaly. Surgical scar noted to the midline anterior neck. Respiratory/Chest: Lungs CTAB. No shortness of breath, chest tenderness, respiratory distress, accessory muscle use. No crackles, rales, rhonchi, stridor , wheezing, dullness Cardiovascular: RRR. S1, S2. No JVD, murmur, bradycardia, tachycardia. Vascular Pulses: Dorsalis-Pedis (R): 2+, Dorsalis-Pedis (L): 2+ Gastrointestinal/Abdominal: Normal bowel sounds. Abdomen soft, non-distended. Diffuse tenderness which is equal throughout the abdomen. No rebound tenderness. No organomegaly, pulsatile mass, guarding, hernia, hepatomegaly, splenomegaly. Negative psoas, obturator and Rovsing signs. Lymphatic: No adenopathy, tenderness. Musculoskeletal/Extremities: Normal inspection. FROM of all extremities, normal capillary refill. Pelvis Stable. No CVA tenderness. No tenderness to extremities, pedal edema, swelling, erythema or deformity. Integumentary: Appropriate color, dry, warm. No cyanosis, erythema, jaundice or rash Past History - Past Medical History Allergies/Adverse Reactions: Allergies Allergy/AdvReac Type Severity Reaction Status Date / Time No Known Allergies Allergy Verified 07/04/19 15:16 Home Medications: Ambulatory Orders Ondansetron [Zofran Odt -] 4 mg SL TID PRN #10 od.tablet 06/30/19 Cephalexin Monohydrate [Keflex -] 500 mg PO BID #20 capsule 07/04/19 Asthma: Yes Cardiac Disorders: Yes (murmur) COPD: No Diabetes: Yes (HYPOGLYCEMIA) Thyroid Disease: Yes (hypothyrodism) Other medical history: PANCRETITIS - Immunization History Immunization Up to Date: Yes - Psycho Social/Smoking Cessation Hx Smoking History: Never smoked Have you smoked in the past 12 months: No Information on smoking cessation initiated: No Hx Alcohol Use: No Drug/Substance Use Hx: No *Physical Exam - Vital Signs Last Vital Signs Temp Pulse Resp BP Pulse Ox 98.1 F 75 16 122/75 100 07/04/19 15:17 07/04/19 15:17 07/04/19 15:17 07/04/19 15:17 07/04/19 15:17 ED Treatment Course - LABORATORY CBC & Chemistry Diagram: 07/04/19 15:32 07/04/19 15:32 - ADDITIONAL ORDERS Additional order review: Laboratory Results 07/04/19 07/04/19 07/04/19 15:32 15:32 15:32 Sodium 138 Potassium 4.8 Chloride 107 Carbon Dioxide 27 Anion Gap 4 L BUN 13.5 Creatinine 0.8 Est GFR (CKD-EPI)AfAm 117.93 Est GFR (CKD-EPI)NonAf 101.75 Random Glucose 85 Calcium 9.5 Magnesium 2.1 Total Bilirubin 0.7 AST 12 L ALT 24 Alkaline Phosphatase 81 Total Protein 8.2 Albumin 4.3 Lipase 119 Urine Color Yellow Urine Appearance Cloudy Urine pH 8.0 D Ur Specific [place] 1.025 Urine Protein Negative Urine Glucose (UA) Negative Urine Ketones Trace H Urine Blood Negative Urine Nitrite Negative Urine Bilirubin Negative Urine Urobilinogen 0.2 Ur Leukocyte Esterase Trace Urine WBC (Auto) 14 Urine RBC (Auto) 3 Urine Casts (Auto) 20 U Epithel Cells (Auto) >36 Urine Bacteria (Auto) 1222.9 Urine HCG, Qual Negative 07/04/19 15:32 RBC 4.67 MCV 95.5 MCHC 33.3 RDW 12.5 MPV 8.3 Neutrophils % 65.7 Lymphocytes % 25.7 Monocytes % 6.9 Eosinophils % 1.3 Basophils % 0.4 - RADIOLOGY Radiology Studies Ordered: Category Date Time Status ABDOMEN & PELVIS CT WITH CONTR [CT] Stat CT Scan 07/04/19 18:29 Ordered - Medications Given in the ED: ED Medications Discontinued Medications Generic Name Dose Route Start Last Admin Trade Name Freq PRN Reason Stop Dose Admin Sodium Chloride 1,000 mls @ 1,000 mls/hr 07/04/19 15:21 07/04/19 17:05 Normal Saline - IV 07/04/19 16:20 1,000 mls/hr ASDIR STA Administration Ondansetron HCl 4 mg 07/04/19 15:21 07/04/19 17:05 Zofran Injection IVPUSH 07/04/19 15:22 4 mg ONCE ONE Administration Medical Decision Making - Medical Decision Making 07/04/19 18:35 A/P: 24-year-old woman with diffuse abdominal pain for 4 days Previous laboratory testing has been reviewed which is notable for a lipase of 600. Labs per [facility] Urinalysis, urine culture, urine Educations per [facility] CT of the abdomen and pelvis with IV contrast Reassess 07/04/19 20:25 CT scan is read by of the abdomen and pelvis with IV contrast as read by Dr. Alexander: No definite CT findings of acute abnormality are noted. Overall there is been no definite interval change in comparison to a prior CT study 07/30/2017. Urinalysis notable for trace leukoesterase and 14 WBCs on high-power field. Patient with greater than 36 epithelial cells suggestive of contamination but given no other cause of abdominal pain I will treat with Keflex. I discussed the physical exam findings, ancillary test results and final diagnoses with the patient. I answered all of the patient's questions. The patient was satisfied with the care received and felt comfortable with the discharge plan and treatment plan. The patient will call their primary care physician within 24 hours to arrange follow-up and will return to the Emergency Department with any new, persistent or worsening symptoms. Discharge - Discharge Information Problems reviewed: Yes Clinical Impression/Diagnosis: Abdominal pain Qualifiers: Abdominal location: generalized Qualified Code(s): R10.84 - Generalized abdominal pain Condition: Stable Disposition: HOME - Admission No - Additional Discharge Information Prescriptions: Cephalexin Monohydrate [Keflex -] 500 mg PO BID #20 capsule - Follow up/Referral Referrals: Stacy Holder, TER[facility]OT[facility] MASON [Primary Care Provider] - - Patient Discharge Instructions Additional Instructions: Rest, drink lots of fluids: Teas, water, soups Avoid contact with others until fevers and symptoms resolved Lots of handwashing and good hygiene Continue [id number] medications for symptomatic relief Tylenol or Motrin for fever and pain Continue all of antibiotics until completed Followup with private physician in one week for repeat urinalysis/reevaluation Return to emergency department for worsened symptoms, fevers, dehydration - Post Discharge Activity
[2019-07-04] MEDS ORDERED: morphine CARPU-JECT 2 MG/1 ML DISP.SYRIN IVPUSH ONE (18:38)
[2019-07-04 18:52] VITALS: BP 104/62; PULSE 83; TEMP 97.6
== END 2019-07-04 21:17 | disposition home or self-care (01) ==
LOC: JER 14:59
PROC: 3E033GC Introduction of Other Therapeutic Substance into Peripheral Vein, Percutaneous Approach (ICD-10-PCS; principal; 2019-07-04)
DX: R10.84 Generalized abdominal pain (principal); E16.2 Hypoglycemia, unspecified; K86.9 Disease of pancreas, unspecified; J45.909 Unspecified asthma, uncomplicated; E89.0 Postprocedural hypothyroidism; E28.2 Polycystic ovarian syndrome
CPT/HCPCS: 36415; 74177-TC; 80053; 81003; 83690; 83735; 84703; 85025; 96374; 99283-25; J7030

== ENCOUNTER 2019-08-16 13:13 | Emergency (ER) | payer OTHER ==
[2019-08-16 13:26] VITALS: BP 103/62; PULSE 98; TEMP 98; BMI 21.2
[2019-08-16] MEDS ORDERED: FAMOTIDINE 20 MG/50 ML IVPB 20 MG/50 ML MG IVPB ONE ×2 (13:52→15:05)
[2019-08-16] MEDS ORDERED: ONDANSETRON *ODT* 4 MG TABLET SL ONE (13:52)
[2019-08-16] MEDS ORDERED: LACTATED RINGERS SOLUTION 1000 ML INFUS.BAG IV ONE ×2 (13:53→16:55)
[2019-08-16] MEDS ORDERED: ACETAMINOPHEN 1000 MG/100 ML VIAL (NON FORMULARY) IVPB ONE (13:54)
[2019-08-16] MEDS ORDERED: ONDANSETRON *ODT* 4 MG TABLET ONE (13:55)
--- NOTE | 2019-08-16 14:17 | PDOC ---
History of Present Illness - General Chief Complaint: Diarrhea Stated Complaint: NAUSEA/DIARRHEA Time Seen by Provider: 08/16/19 13:46 History Source: Patient Exam Limitations: Clinical Condition - History of Present Illness Initial Comments: 08/16/19 14:11 Patient with past medical history of hypothyroidism post thyroid surgery, hypoglycemia and asthma presented with complaint of one-week history of persistent diarrhea with 4-5 bowel movement today with watery stool for 1 week. Patient reports traveling to [place] month ago but has been fine since returning symptoms started a week ago. Patient did not take anything for symptoms. Patient reported weakness and diffuse abdominal pain due to persistent diarrhea and vomiting. Denies fever, chills, blood in stool. Patient was seen a month ago for same symptoms which lipase lab was 600 and repeat lipase lab for this later was normal. Abdominal pelvis CAT scan done a month ago was unremarkable. Patient was instructed to follow-up with GI which she reportedly did but was told by GI that he needs to be done. Is this a multiple visit Asthma Patient?: No Timing/Duration: 1 week Past History - Past Medical History Allergies/Adverse Reactions: Allergies Allergy/AdvReac Type Severity Reaction Status Date / Time No Known Allergies Allergy Verified 07/04/19 15:16 Home Medications: Ambulatory Orders Cephalexin Monohydrate [Keflex -] 500 mg PO BID #20 capsule 07/04/19 Ciprofloxacin HCl [Cipro] 500 mg PO BID 7 Days #14 tablet 08/16/19 Loperamide HCl [Loperamide] 2 mg PO Q8H PRN #20 capsule 08/16/19 Mag Hydrox/Aluminum Hyd/Simeth [Maalox Advanced Suspension] 30 ml PO Q8H PRN # 200 ml 08/16/19 Ondansetron [Zofran *Odt*] 4 mg SL TID PRN #10 od.tablet 08/16/19 metroNIDAZOLE [Flagyl -] 500 mg PO DAILY #14 tablet 08/16/19 Asthma: Yes Cardiac Disorders: Yes (murmur) COPD: No Diabetes: Yes (HYPOGLYCEMIA) Thyroid Disease: Yes (hypothyrodism) - Immunization History Immunization Up to Date: Yes - Psycho Social/Smoking Cessation Hx Smoking History: Never smoked Have you smoked in the past 12 months: No Hx Alcohol Use: No Drug/Substance Use Hx: No Review of Systems - Review of Systems Able to Perform ROS?: Yes Is the patient limited B[place]ian proficient: No Constitutional: Yes: Weakness. No: Diaphoresis, Fever HEENTM: No: Symptoms Reported, See HPI, Eye Pain, Blurred Vision, Tearing, Recent change in vision, Double Vision, Cataracts, Ear Pain, Ocular Prothesis, Ear Discharge, Nose Pain, Nose Congestion, Tinnitus, Nose Bleeding, Hearing Loss , Throat Pain, Throat Swelling, Mouth Pain, Dental Problems, Difficulty Swallowing, Mouth Swelling, Other Respiratory: No: Symptoms reported, See HPI, Cough, Orthopnea, Shortness of Breath, SOB with Exertion, SOB at Rest, Stridor, Wheezing, Productive cough, Hemoptysis, Other Cardiac (ROS): No: Symptoms Reported, See HPI, Chest Pain, Edema, Irregular Heart Rate, Lightheadedness, Palpitations, Syncope, Chest Tightness, Other ABD/GI: Yes: Symptoms Reported, See HPI, Diarrhea, Nausea, Poor Appetite, Vomiting, Abdominal cramping (diffused abdominal pain). No: Abdominal Distended , Abd. Pain w/ defecation, Blood Streaked Bowels, Constipated, Difficulty Swallowing, Poor Fluid Intake, Rectal Bleeding, Indigestion, Tarry Stools : No: Symptoms Reported, Burning, Discharge, Flank Pain, Urgency Musculoskeletal: No: Symptoms Reported Integumentary: No: Symptoms Reported Neurological: Yes: Symptoms reported, See HPI, Weakness. No: Headache, Pre- Existing Deficit, Seizure, Unsteady Gait, Dizziness All Other Systems: Reviewed and Negative *Physical Exam - Vital Signs Last Vital Signs Temp Pulse Resp BP Pulse Ox 98 F 98 H 20 103/62 97 08/16/19 13:22 08/16/19 13:22 08/16/19 13:22 08/16/19 13:22 08/16/19 13:22 - Physical Exam General Appearance: Yes: Nourished, Appropriately Dressed, Mild Distress HEENT: positive: SARAN, Normal ENT Inspection, Pharynx Normal Neck: positive: Supple Respiratory/Chest: positive: Lungs Clear, Normal Breath Sounds. negative: Respiratory Distress, Accessory Muscle Use Cardiovascular: positive: Regular Rhythm, Regular Rate Gastrointestinal/Abdominal: positive: Normal Bowel Sounds, Tender (diffused subjective abdominal tenderness), Flat, Soft. negative: Organomegaly, Decreased BS, Distended, Guarding, Rebound, Hepatomegaly, Spleenomegaly Musculoskeletal: positive: Normal Inspection. negative: CVA Tenderness Extremity: positive: Normal Inspection Integumentary: positive: Normal Color Neurologic: positive: Fully Oriented, Alert, Normal Mood/Affect, Normal Response ED Treatment Course - LABORATORY CBC & Chemistry Diagram: 08/16/19 14:24 08/16/19 14:24 - Medications Given in the ED: ED Medications Discontinued Medications Generic Name Dose Route Start Last Admin Trade Name Freq PRN Reason Stop Dose Admin Ondansetron HCl 4 mg 08/16/19 13:52 08/16/19 13:57 Zofran Odt - SL 08/16/19 13:53 4 mg ONCE ONE Administration Medical Decision Making - Medical Decision Making 08/16/19 14:13 Patient with past medical history of hypoglycemia, hypothyroidism and asthma presented with complaint of one-week history of diarrhea, nausea, vomiting and weakness. Patient with multiple visit for same symptoms. Abdominal pelvic CT done last one was unremarkable. Patient reporting subjective diffuse abdominal pain now no guarding no rebound on exam. Symptoms likely viral gastroenteritis versus bacterial gastroenteritis versus less likely pancreatitis. CBC, CMP and lipase lab ordered. Zofran 4 mg sublingual ordered for nausea/ vomiting. IV hydration with lactated Ringer's 1 L ordered. Pepcid 20 mg IV ordered for abdominal discomfort and Tylenol 1 g IV ordered for pain. Treat based on lab results 08/16/19 19:01 CBC and chemistry lab unremarkable. Lipase normal. Patient report increased symptoms improvement in dehydration symptoms after 2 L of lactated Ringer's, Zofran and Reglan. Stool culture sent. Patient given 1 dose of IV Flagyl 500 mg prolonged symptoms of gastroenteritis. Patient stable for discharge on Cipro and Flagyl for gastroenteritis with Zofran as needed for nausea and vomiting and loperamide for diarrhea with GI follow-up Discharge - Discharge Information Problems reviewed: Yes Clinical Impression/Diagnosis: Gastroenteritis Diarrhea Qualifiers: Diarrhea type: unspecified type Qualified Code(s): R19.7 - Diarrhea, unspecified Nausea & vomiting Qualifiers: Vomiting type: unspecified Vomiting Intractability: non-intractable Qualified Code(s): R11.2 - Nausea with vomiting, unspecified Condition: Improved Disposition: HOME - Admission No - Additional Discharge Information Prescriptions: Ciprofloxacin HCl [Cipro] 500 mg PO BID 7 Days #14 tablet Loperamide HCl [Loperamide] 2 mg PO Q8H PRN #20 capsule PRN Reason: diarrhea Mag Hydrox/Aluminum Hyd/Simeth [Maalox Advanced Suspension] 30 ml PO Q8H PRN # 200 ml PRN Reason: abdominal discomfort metroNIDAZOLE [Flagyl -] 500 mg PO DAILY #14 tablet Ondansetron [Zofran *Odt*] 4 mg SL TID PRN #10 od.tablet PRN Reason: nausea - Follow up/Referral Referrals: Giselle Wright MD [Staff Physician] - - Patient Discharge Instructions Patient Printed Discharge Instructions: Gastroenteritis Diet Additional Instructions: Your blood work was normal. Your symptoms likely gastroenteritis. Given how long as you have been having symptoms, we will start you on antibiotics for possible bacterial gastroenteritis. Follow-up with referred GI as soon as possible. Increase fluid intake. Take medications as prescribed - Post Discharge Activity
[2019-08-16] MEDS ORDERED: ACETAMINOPHEN INJECTION 100 ML IVPB ONE (14:34)
[2019-08-16 14:38] LABS: BASO % 0.6 % (0-2.0); EOS % 0.8 % (0-4.5); HEMATOCRIT 43.7 % (32.4-45.2); HEMOGLOBIN 15.4 GM/dL (10.7-15.3); LYMPH % 10.5 % (8-40); MCH 32.8 pg (25.7-33.7); MCHC 35.3 g/dl (32.0-36.0); MEAN CELL VOLUME 92.9 fl (80-96); MEAN PLT VOLUME 8.1 fl (7.5-11.1); MONO % 5.6 % (3.8-10.2); NEUT % 82.5 % (42.8-82.8); PLATELET COUNT 216 K/MM3 (134-434); RDW 12.8 % (11.6-15.6); WHITE BLOOD COUNT 11.6 K/mm3 (4.0-10.0)
[2019-08-16 15:04] LABS: ALBUMIN 4.4 g/dl (3.4-5.0); BILIRUBIN,TOTAL 0.7 mg/dL (0.2-1); BLOOD UREA NITROGEN 10.4 mg/dL (7-18); CREATININE 0.8 mg/dL (0.55-1.3); POTASSIUM 4.1 mmol/L (3.5-5.1); TOT PROT 8.3 g/dl (6.4-8.2)
[2019-08-16] MEDS ORDERED: METOCLOPRAMIDE HCL INJECTION 10 MG/2 ML VIAL IVPB ONE (17:02)
[2019-08-16] MEDS ORDERED: METOCLOPRAMIDE HCL INJECTION 10 MG/2 ML VIAL ONE (17:02)
== END 2019-08-16 19:57 | disposition home or self-care (01) ==
LOC: JERFT 13:13 → JER 13:13 → JERFT 19:57
PROC: 3E033GC Introduction of Other Therapeutic Substance into Peripheral Vein, Percutaneous Approach (ICD-10-PCS; principal; 2019-08-16)
PROC: 3E03329 Introduction of Other Anti-infective into Peripheral Vein, Percutaneous Approach (ICD-10-PCS; 2019-08-16)
PROC: 3E033GC Introduction of Other Therapeutic Substance into Peripheral Vein, Percutaneous Approach (ICD-10-PCS; 2019-08-16)
PROC: 3E033NZ Introduction of Analgesics, Hypnotics, Sedatives into Peripheral Vein, Percutaneous Approach (ICD-10-PCS; 2019-08-16)
DX: K52.9 Noninfective gastroenteritis and colitis, unspecified (principal)
CPT/HCPCS: 36415; 80053; 83690; 84703; 85025; 87045; 87046; 87177; 87209; 87324; 87449; 99282-25; J0131; Q0162

== ENCOUNTER 2020-04-08 17:03 | Emergency (ER) | payer OTHER ==
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
[2020-04-08 17:18] VITALS: BP 133/82; PULSE 77; TEMP 98.8; BMI 22.3
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
--- NOTE | 2020-04-12 09:28 | EKG ---
Test Reason : Blood Pressure : / mmHG Vent. Rate : 060 BPM Atrial Rate : 060 BPM P-R Int : 158 ms QRS Dur : 080 ms QT Int : 402 ms P-R-T Axes : 084 079 072 degrees QTc Int : 402 ms NORMAL SINUS RHYTHM POSSIBLE LEFT ATRIAL ENLARGEMENT BORDERLINE ECG WHEN COMPARED WITH ECG OF 14-APR-2019 13:21, NO SIGNIFICANT CHANGE WAS FOUND Confirmed by Amanda James ([id number]) on 04/12/2020 9:28:21 AM Referred By: Confirmed By:Amanda James
== END 2020-04-08 18:15 | disposition home or self-care (01) ==
LOC: JER 17:03 → JERFT 17:03
DX: T75.4XXA Electrocution, initial encounter (principal)
CPT/HCPCS: 93005; 93010; 99283-25

== ENCOUNTER 2023-03-05 01:21 | Emergency (ER) | payer OTHER ==
[2023-03-05 01:31] VITALS: BP 127/89; PULSE 72; RESP 18; TEMP 98; BMI 23.5
[2023-03-05 02:11] LABS: URINE APPEARANCE CLEAR; URINE BILIRUBIN NEGATIVE (NEGATIVE); URINE COLOR YELLOW; URINE GLUCOSE (UA) NEGATIVE (NEGATIVE); URINE KETONE NEGATIVE (NEGATIVE); URINE LEUK ESTERASE NEGATIVE (NEGATIVE); URINE NITRITE NEGATIVE (NEGATIVE); URINE PROTEIN NEGATIVE (NEGATIVE); URINE UROBILINOGEN 0.2 mg/dL (0.2-1.0)
[2023-03-05 02:14] LABS: HCG,QUALITATIVE URINE Negative
[2023-03-05] MEDS ORDERED: METHOCARBAMOL 750 MG TABLET PO ONE (02:41)
[2023-03-05] MEDS ORDERED: LIDOCAINE 5% TOPICAL PATCH TP ONE (02:41)
[2023-03-05] MEDS ORDERED: LIDOCAINE 5% TOPICAL PATCH ONE (02:46)
[2023-03-05] MEDS ORDERED: METHOCARBAMOL 500 MG TABLET ONE (02:49)
[2023-03-05] MEDS ORDERED: LIDOCAINE PATCH REMOVAL MC SCH (22:00)
== END 2023-03-05 02:57 | disposition home or self-care (01) ==
LOC: JER 01:21
DX: M54.50 Low back pain, unspecified (principal); G89.29 Other chronic pain; Z91.81 History of falling
CPT/HCPCS: 72100-TC-FY; 81003; 84703; 99284-25

== ENCOUNTER 2023-03-24 02:12 | Emergency (ER) | payer OTHER ==
[2023-03-24 02:21] VITALS: BP 122/66; PULSE 88; RESP 18; TEMP 98.4; BMI 23.5
[2023-03-24] MEDS ORDERED: ACETAMINOPHEN 1000 MG/100 ML BAG IVPB ONE (02:40)
[2023-03-24] MEDS ORDERED: ACETAMINOPHEN INJECTION 100 ML IVPB ONE (02:42)
[2023-03-24] MEDS ORDERED: morphine CARPU-JECT 2 MG/1 ML DISP.SYRIN IVPUSH ONE (03:11)
[2023-03-24] MEDS ORDERED: BACITRACIN ZINC 15 GM TUBE TOPICAL OINTMENT ONE (04:39)
[2023-03-24] MEDS ORDERED: ONDANSETRON *ODT* 4 MG TABLET ONE (04:42)
[2023-03-24] MEDS ORDERED: ONDANSETRON *ODT* 4 MG TABLET SL ONE (04:43)
[2023-03-24] MEDS ORDERED: DIPHTH,PERTUSS(ACELL),TET 0.5 ML DISP.SYRIN IM ONE ×2 (04:46→04:51)
== END 2023-03-24 05:45 | disposition home or self-care (01) ==
LOC: JER 02:12
PROC: 3E033NZ Introduction of Analgesics, Hypnotics, Sedatives into Peripheral Vein, Percutaneous Approach (ICD-10-PCS; principal; 2023-03-24)
PROC: 3E033GC Introduction of Other Therapeutic Substance into Peripheral Vein, Percutaneous Approach (ICD-10-PCS; 2023-03-24)
PROC: 3E0234Z Introduction of Serum, Toxoid and Vaccine into Muscle, Percutaneous Approach (ICD-10-PCS; 2023-03-24)
DX: T22.231A Burn of second degree of right upper arm, initial encounter (principal); T25.221A Burn of second degree of right foot, initial encounter; T31.0 Burns involving less than 10% of body surface; X11.0XXA Contact with hot water in bath or tub, initial encounter
CPT/HCPCS: 90471; 90715; 96374; 96375; 99284-25; Q0162